=== PATIENT | female | born 1990 | race Caucasian/White ===

== ENCOUNTER 2022-07-21 08:01 | Inpatient (IN) ==
[2022-07-21] MEDS ORDERED: Lactated Ringers 1000 ml BAG 1,000 ML IV ONE ×3 (08:08→09:18)
[2022-07-21] MEDS ORDERED: Ondansetron 4 mg VIAL 2 MG/ML 2 ml VIAL IV ONE (08:08)
[2022-07-21 08:58] LABS: Hematocrit 42 % (35-47); Hemoglobin 12.5 g/dL (12.0-16.0); Mean Corpuscular HGB Conc 30 g/dL (31-36); Mean Corpuscular Hemoglobin 26 pg (27-31); Mean Corpuscular Volume 87 fL (80-97); Mean Platelet Volume 8.8 fL (7.4-10.4); Platelet Count 404 10^3/uL (150-450); Red Blood Count 4.84 10^6 /uL (3.70-4.87); Red Cell Distribution Width 17 % (10-15); White Blood Count 14.5 10^3/uL (3.5-10.8)
[2022-07-21 08:59] LABS: INR 0.98 (0.89-1.11)
[2022-07-21 09:00] LABS: Activated Partial Thrombo Time 35.4 seconds (26.0-38.0)
[2022-07-21 09:08] LABS: High Sens Troponin Baseline 8 pg/mL (<15)
[2022-07-21] MEDS ORDERED: Dextrose 50% Syringe 50 ml 25 GM/50 ML SYRINGE IV PUSH PRN ×2 (09:16→09:46)
[2022-07-21 09:22] LABS: ALT 24 U/L (7-52); AST 14 U/L (13-39); Albumin 4.8 g/dL (3.2-5.2); Albumin/Globulin Ratio 1.3 (1-3); Alcohol, S < 13 mg/dL (<13); Alkaline Phosphatase 228 U/L (35-149); Blood Urea Nitrogen 53 mg/dL (6-24); C Reactive Protein 25.76 mg/L (<8.01); Chloride 92 mmol/L (101-111); Creatine Kinase 77 U/L (10-223); Globulin 3.8 g/dL (2-4); Sodium 129 mmol/L (135-145); Total Protein 8.6 g/dL (6.4-8.9); eGFR CKD-EPI 37.9 (>60)
[2022-07-21 09:41] LABS: CO2 Carbon Dioxide < 7 mmol/L (22-32); Glucose 760 mg/dL (70-100); Potassium 6.4 mmol/L (3.5-5.0)
[2022-07-21] MEDS ORDERED: Insulin Infusion 100unit/100mL 100 UNIT/100 ML BAG IV SCH ×4 (10:00→12:41)
[2022-07-21 10:13] LABS: ABS Lymphocytes 0.6 10^3/ul (1.0-4.8); ABS Monocytes 0.6 10^3/ul (0-0.8); ABS Neutrophils 13.4 10^3/ul (1.5-7.7); Hypochromasia 2+
[2022-07-21 10:14] LABS: Anisocytosis 1+
[2022-07-21 10:50] LABS: High Sensitivity Troponin 1 Hr 8 pg/mL (<15)
[2022-07-21] MEDS ORDERED: Metoclopramide 5 MG/ML VIAL (10 mg) IV PRN (11:48)
[2022-07-21 12:01] LABS: Urine Appearance Clear; Urine Bilirubin Negative (Negative); Urine Color Straw; Urine Glucose 2+ (500mg/dL) (Negative); Urine Ketones 4+ (>=160mg/dL) (Negative)
[2022-07-21 12:02] LABS: Urine Nitrite Negative (Negative); Urine Protein 1+ (30 mg/dL) (Negative); Urine Urobilinogen 0.2 (Negative) (Negative); Urine pH 5.5 (5.0-9.0)
[2022-07-21 12:06] LABS: Urine Bacteria Absent (Absent); Urine Red Blood Cell Trace(0-2/hpf) (Absent); Urine Squamous Epithelial Cell Present (Absent); Urine White Blood Cell Absent (Absent)
[2022-07-21 12:13] LABS: Magnesium 2.7 mg/dL (1.9-2.7)
[2022-07-21 12:18] LABS: Phosphorus 7.1 mg/dL (2.5-5.0)
[2022-07-21 12:27] LABS: Blood Urea Nitrogen 49 mg/dL (6-24); Calcium 8.3 mg/dL (8.6-10.3); Chloride 99 mmol/L (101-111); Magnesium 2.2 mg/dL (1.9-2.7); Phosphorus 4.9 mg/dL (2.5-5.0); Sodium 132 mmol/L (135-145); eGFR CKD-EPI 57.1 (>60)
[2022-07-21 12:32] LABS: Glucose Confirmatory 429 mg/dL (70-100)
[2022-07-21 12:32] LABS: Urine Benzodiazepine Screen None Detected (None Detect); Urine Cannabinoids Screen None Detected (None Detect); Urine Opiates Screen None Detected (None Detect)
[2022-07-21 12:53] LABS: CO2 Carbon Dioxide < 7 mmol/L (22-32); Glucose 552 mg/dL (70-100)
[2022-07-21 13:42] LABS: Potassium 5.2 mmol/L (3.5-5.0)
[2022-07-21] MEDS: D5W 1/2 NS 1000 ml BAG 1,000 ML IV SCH ×2 (14:55→21:50)
[2022-07-21 17:53] LABS: Calcium 8.2 mg/dL (8.6-10.3); Magnesium 1.9 mg/dL (1.9-2.7); Phosphorus 2.7 mg/dL (2.5-5.0); Potassium 4.8 mmol/L (3.5-5.0)
[2022-07-21 20:37] LABS: Calcium 8.1 mg/dL (8.6-10.3); Magnesium 1.8 mg/dL (1.9-2.7); Potassium 4.2 mmol/L (3.5-5.0)
[2022-07-21 20:42] LABS: Phosphorus 1.4 mg/dL (2.5-5.0)
[2022-07-21] MEDS ORDERED: Magnesium Sulfate 2 gm BAG 2 GM/50 ML BAG IVPB ONE (20:47)
[2022-07-21] MEDS ORDERED: NS IV ONE (20:47)
[2022-07-21] MEDS ORDERED: SODIUM PHOSPHATE IV ONE (20:47)
[2022-07-21] MEDS ORDERED: Insulin GLARGINE 100 un/ml 10 ml VIAL SUBCUT SCH (21:00)
[2022-07-22 00:33] LABS: Calcium 7.4 mg/dL (8.6-10.3); Magnesium 2.8 mg/dL (1.9-2.7); Phosphorus 14.6 mg/dL (2.5-5.0); Potassium 3.7 mmol/L (3.5-5.0); eGFR CKD-EPI 76.8 (>60)
[2022-07-22] MEDS ORDERED: Insulin Infusion 100unit/100mL 100 UNIT/100 ML BAG IV SCH ×2 (00:35→06:00)
[2022-07-22] MEDS ORDERED: D5LR 20 MEQ KCL 1000 ml BAG 1,000 ML IV SCH ×2 (01:00→06:00)
[2022-07-22 01:57] LABS: Calcium 7.9 mg/dL (8.6-10.3); Phosphorus 2.4 mg/dL (2.5-5.0); Potassium 3.7 mmol/L (3.5-5.0); eGFR CKD-EPI 77.7 (>60)
[2022-07-22] MEDS ORDERED: Dextrose 50% Syringe 50 ml 25 GM/50 ML SYRINGE IV PUSH PRN ×2 (02:28→05:49)
[2022-07-22 04:40] LABS: ABS Eosinophils 0.1 10^3/ul (0-0.6); ABS Lymphocytes 1.4 10^3/ul (1.0-4.8); ABS Monocytes 0.7 10^3/ul (0-0.8); ABS Neutrophils 6.9 10^3/ul (1.5-7.7); Eosinophil % 1.1 %; Hematocrit 31 % (35-47); Hemoglobin 10.3 g/dL (12.0-16.0); Lymphocyte % 14.9 %; Mean Corpuscular HGB Conc 33 g/dL (31-36); Mean Corpuscular Hemoglobin 26 pg (27-31); Mean Corpuscular Volume 79 fL (80-97); Platelet Count 280 10^3/uL (150-450); Red Blood Count 3.94 10^6 /uL (3.70-4.87); Red Cell Distribution Width 16 % (10-15); White Blood Count 9.1 10^3/uL (3.5-10.8)
[2022-07-22 05:31] LABS: Albumin 3.6 g/dL (3.2-5.2); Albumin/Globulin Ratio 1.4 (1-3); Calcium 8.1 mg/dL (8.6-10.3); Globulin 2.6 g/dL (2-4); Magnesium 2.9 mg/dL (1.9-2.7); Phosphorus 2.4 mg/dL (2.5-5.0); Potassium 4.2 mmol/L (3.5-5.0); Total Bilirubin 0.8 mg/dL (0.2-1.0); Total Protein 6.2 g/dL (6.4-8.9); eGFR CKD-EPI 77.7 (>60)
[2022-07-22 11:18] LABS: Calcium 7.8 mg/dL (8.6-10.3); Potassium 3.6 mmol/L (3.5-5.0); eGFR CKD-EPI 97.4 (>60)
[2022-07-22 13:57] LABS: Calcium 7.9 mg/dL (8.6-10.3); Potassium 3.9 mmol/L (3.5-5.0); eGFR CKD-EPI 101.9 (>60)
[2022-07-22] MEDS ORDERED: Insulin GLARGINE 100 un/ml 10 ml VIAL SUBCUT ONE (14:54)
[2022-07-22 20:42] LABS: Calcium 7.6 mg/dL (8.6-10.3); Potassium 3.7 mmol/L (3.5-5.0); eGFR CKD-EPI 115.8 (>60)
[2022-07-23] MEDS ORDERED: Insulin GLARGINE 100 un/ml 10 ml VIAL SUBCUT ONE (01:01)
[2022-07-23 06:40] LABS: Calcium 7.7 mg/dL (8.6-10.3); Potassium 3.4 mmol/L (3.5-5.0); eGFR CKD-EPI 117.8 (>60)
[2022-07-23] MEDS ORDERED: Potassium Chlor 20 meq TAB.ER PO ONE ×2 (07:12→07:13)
[2022-07-23 10:17] VITALS: BP 152/91
== END 2022-07-23 10:25 | disposition home or self-care (01) | DRG 420 ==
LOC: ED 08:01 → EDHOLD 10:05 → ICU 10:40
PROVIDERS: ADMIT Internal Medicine Critical Care Medicine; ATTEND Internal Medicine Critical Care Medicine